=== PATIENT | male | born 1990 | race Caucasian/White ===

== ENCOUNTER 2018-08-31 11:04 | Emergency (ER) | payer SELFPAY ==
[~2018-08-31] VITALS: Ht 182.9 cm; Wt 72.6 kg
[2018-08-31] MEDS ORDERED: HYDROCODONE/APAP 5MG-325MG TAB PO ONE (11:15)
[2018-08-31] MEDS ORDERED: TETANUS/DIPHTHERIA TOX ADULT 0.5 ML SYR IM ONE (11:30)
[2018-08-31] MEDS ORDERED: LIDOCAINE 1% W/EPINEPHRINE 20 ML VIAL INJ ONE (11:30)
--- NOTE | 2018-08-31 12:26 | Diagnostic Imaging Report ---
CT BRAIN WO HISTORY: Trauma COMPARISON: None. TECHNIQUE: CT of the head was performed without the administration of intravenous contrast. Coronal/sagittal reformations were created. One or more of the following dose reduction techniques were used: Automated exposure control, adjustment of the mA and/or kV according to patient size, and/or utilization of iterative reconstruction technique. DISCUSSION: Scalp/Skull: No abnormalities. Brain sulci: Appropriate for patient's age. Ventricles: Normal in size and configuration. No hydrocephalus. Extra-axial spaces: No masses or fluid collections. Parenchyma: No abnormal densities. No masses, hemorrhage, or large vascular territory acute infarct. Dural sinuses: No abnormal densities. Sellar/Suprasellar region: Intact. Skull base: Intact. Incidental findings: Nonspecific mild bilateral ethmoid air cell opacification is partially visualized. IMPRESSION: No intracranial abnormalities. Signed by: Dr. Maximino Rayo M.D. on 08/31/2018 12:23 PM
--- NOTE | 2018-08-31 12:38 | Diagnostic Imaging Report ---
CT MAXIO FAC/PARANAS WO HISTORY: Trauma COMPARISON: Concurrent head CT TECHNIQUE: Axial CT images through the face were obtained without contrast. Coronal/sagittal reformations were created. One or more of the following dose reduction techniques were used: Automated exposure control, adjustment of the mA and/or kV according to patient size, and/or utilization of iterative reconstruction technique. DISCUSSION: Mild subcutaneous edema/swelling is seen in the left nasal, left premaxillary, and mental regions. Small superficial cutaneous laceration is seen in the right submental region. A mildly displaced left orbital blowout fracture involves the posterior left orbital floor and posterior inferior left lamina papyracea. There is associated mild hemorrhagic opacification of the left maxillary sinus. Left intraorbital fat slightly herniates into the fracture defect. Left intraorbital contents are otherwise unremarkable. The right orbit is intact. Right intraorbital contents are grossly unremarkable. There is also a mildly displaced, mildly comminuted left nasal bone fracture. No additional acute fracture is seen. No destructive osseous lesions are seen. The right maxillary sinus is mildly atelectatic. Mild scattered mucosal thickening is seen in the bilateral ethmoid air cells and right maxillary sinus. The palatine tonsils are mildly prominent. Multiple mildly prominent bilateral upper cervical lymph nodes are present. IMPRESSION: 1. Mildly displaced left orbital blowout fracture involves the posterior left orbital floor and posterior inferior left lamina papyracea. 2. Mildly displaced, mildly comminuted left nasal bone fracture. 3. No other acute osseous abnormalities. Signed by: Dr. Maximino Rayo M.D. on 08/31/2018 12:35 PM
[2018-08-31] MEDS ORDERED: NEOMYCIN/POLYMYX/BACITR OINT 0.9 GM PKT TOP ONE (13:45)
== END 2018-08-31 14:16 | disposition home or self-care (01) ==
LOC: ER 11:04
DX: S01.81XA Laceration without foreign body of other part of head, initial encounter (principal); S02.32XA Fracture of orbital floor, left side, initial encounter for closed fracture; S02.2XXA Fracture of nasal bones, initial encounter for closed fracture; Y04.0XXA Assault by unarmed brawl or fight, initial encounter; Y92.488 Other paved roadways as the place of occurrence of the external cause
CPT/HCPCS: 70450; 70486; 90471; 90714; 93005; 99283